=== PATIENT | male | born 1960 ===

== ENCOUNTER 2017-05-16 08:59 | Outpatient (CLI) | payer OTHER ==
[~2017-05-16] VITALS: Ht 177.8 cm; Wt 93.0 kg
== END 2017-05-16 09:15 | disposition home or self-care (01) ==
LOC: OFIC 805 08:59
DX: H61.23 Impacted cerumen, bilateral (principal); H90.3 Sensorineural hearing loss, bilateral; R09.81 Nasal congestion; H93.13 Tinnitus, bilateral